=== PATIENT | male | born 1960 | race Caucasian/White ===

== ENCOUNTER 2017-08-30 23:54 | Emergency (ER) | payer OTHER ==
[~2017-08-30] VITALS: Ht 182.9 cm; Wt 103.3 kg
[2017-08-31] MEDS ORDERED: PERCOCET 10/1 TABLET PO (04:52)
[2017-08-31] MEDS ORDERED: KEFLEX500 MG PO (04:56)
[2017-08-31 05:06] VITALS: BP 177/105
== END 2017-08-31 05:07 | disposition home or self-care (01) ==
LOC: EME 23:54
DX: G89.18 Other acute postprocedural pain (principal); M79.674 Pain in right toe(s)
CPT/HCPCS: 73660; 99281; 99284